=== PATIENT | male | born 1945 | race African-American/Black ===

== ENCOUNTER 2016-11-02 16:11 | Emergency (ER) | payer OTHER ==
--- NOTE | ~2016-11-02 | CT71 ---
[facility] A Service of [facility] RADIOLOGY TEXT RESULTS PATIENT: CHARU DOMINGUEZ LOCATION: [facility] : 43 UNIT #: [id number] AGE: [address]: Polo Solorzano MD SEX: M ORDER DR: [id number] [facility] [address] [place], [place] [address] [id number] E MR#: [id number] #: [id number] NAME: CHARU DOMINGUEZ : 1945 SEX: M STUDY DATE/TIME: 11/02/2016 19:37 UNIT: SEE ROOM: STUDY DESCRIPTION: CT Head Wo Contrast Attending Physician: Jl Solorzano M.D. Ordering Physician: Pa Menchaca M.D. Primary Care Physician: Fausto Sanchez M.D. MEDICAL IMAGING REPORT This report is preliminary unless electronic signature is present EXAM CT head without contrast dated 11/02/2016 COMPARISON None. HISTORY Weakness, hypotension today. TECHNIQUE This CT examination was performed with one or more of the following radiation dose reduction techniques: automatic exposure control, adjustment of mA and/or kV according to patient size, and iterative reconstruction. FINDINGS CT of the head was obtained without contrast. Patchy hypodensities are noted in the brain involving the periventricular and subcortical white matter, bilateral thalami, right basal ganglia and mariajose. No associated edema is seen. There is no acute intracranial hemorrhage, hydrocephalus or midline shift. Nasal septum is deviated to the left. Paranasal sinuses and mastoid air cells are well-aerated. Orbits with the ocular structures do not demonstrate any significant abnormality. IMPRESSION 1. Scattered hypodensities are noted in the brain suggestive of moderate chronic microvascular ischemic change and old lacunar infarcts. 2. No acute intracranial abnormality. Dictated by... Simone Lipscomb M.D. [facility] A Service of [facility] RADIOLOGY TEXT RESULTS PATIENT: CHARU DOMINGUEZ LOCATION: [facility] : 43 UNIT #: [id number] AGE: [address]: Polo Solorzano MD SEX: M ORDER DR: THIS IS AN ELECTRONICALLY VERIFIED REPORT Simone Lipscomb M.D. at 11/05/2016 3:10 PM CPR/katie TD: 11/04/2016 08:31 JOB #: [id number] MEDICAL IMAGING REPORT Page 1 of 1 COPY
--- NOTE | ~2016-11-02 | EKG ---
PATIENT: CHARU DOMINGUEZ UNIT #: [id number] Ventricular Rate: 68 BPM Atrial Rate: 68 BPM P-R Interval: 226 ms QRS Duration: 86 ms Q-T Interval: 446 ms QTC Calculation(Bezet): 474 ms P [place]: 43 degrees Calculated R [place]: 8 degrees Calculated T [place]: 113 degrees Diagnosis Line: Sinus rhythm with 1st degree A-V block with Diagnosis Line: Premature atrial complexes Diagnosis Line: Left ventricular hypertrophy with repolarization Diagnosis Line: abnormality Diagnosis Line: Abnormal ECG Diagnosis Line: When compared with ECG of 18-APR-2013 12:22, Diagnosis Line: Premature atrial complexes are now Present Diagnosis Line: Vent. rate has increased BY 29 BPM Diagnosis Line: Nonspecific T wave abnormality has replaced Diagnosis Line: inverted T waves in Inferior leads Diagnosis Line: QT has lengthened Diagnosis Line: Confirmed by NICOL SMITH MD ([id number]) on Diagnosis Line: 11/03/2016 4:35:29 PM INTERPRETING MD: SARAH TAVARES
--- NOTE | ~2016-11-02 | CR72 ---
[facility] A Service of [facility] & [facility] RADIOLOGY TEXT RESULTS PATIENT: CHARU DOMINGUEZ LOCATION: [facility] : 43 UNIT #: [id number] AGE: [address]: Polo Solorzano MD SEX: M ORDER DR: [id number] [facility] [address] [place], [place] [address] [id number] E MR#: [id number] Acc #: [id number] NAME: CHARU DOMINGUEZ : 1945 SEX: M STUDY DATE/TIME: 11/02/2016 15:49 UNIT: [facility] ROOM: STUDY DESCRIPTION: CR Chest Single View Portable Attending Physician: Yvonne Solorzano M.D. Ordering Physician: [facility] Primary Care Physician: Fausto Sanchez M.D. MEDICAL IMAGING REPORT This report is preliminary unless electronic signature is present EXAM Portable chest x-ray 11/02/2016 HISTORY Short of air. AP radiograph of the chest is presented. COMPARISON STUDIES 04/18/2013 at 1226 hours FINDINGS Mild cardiac enlargement. More pronounced than on prior study. Mildly tortuous descending thoracic aorta. Degenerative change in the spine. No acute bony abnormality. The lungs are well inflated. Borderline prominence central pulmonary vessels. This could be a reflection of borderline vascular congestion. There is no buster pulmonary edema. No pleural effusion or pneumothorax. No suspicious nodule. There is no indication of pneumonia. Dictated by... Eriberto Roberts M.D. THIS IS AN ELECTRONICALLY VERIFIED REPORT Eriberto Roberts M.D. at 11/03/2016 10:29 AM Navin TD: 11/02/2016 18:15 JOB #: [id number] MEDICAL IMAGING REPORT Page 1 of 1 COPY
[2016-11-02 15:44] LABS: BASOPHIL% 0.4 % (0-2.5); EOSINOPHIL% 0.2 % (0.0-7.0); HEMATOCRIT 39.4 % (38.0-50.0); HEMOGLOBIN 12.7 gm/dL (13.0-16.0); LYMPHOCYTE# 0.5 X10e3 (1.0-3.5); LYMPHOCYTE% 5.1 % (17.0-45.0); MEAN CELL VOLUME 85.4 FL (83-96); MEAN CORPUSCULAR HEMOGLOBIN 27.5 PG (28-34); MEAN CORPUSCULAR HGB CONC 32.2 g/dL (30-36); MEAN PLATELET VOLUME 11.1 FL (6.5-11.5); MONOCYTE# 0.4 X10e3 (0-1.0); NEUTROPHIL# 9.5 X10e3 (1.5-7.1); NEUTROPHIL% 90.3 % (40-75); PLATELET COUNT 125 X10e3 (140-420); RED BLOOD COUNT 4.61 X10e (3.90-5.60); RED CELL DISTRIBUTION WIDTH 14.4 % (11.0-15.5); WHITE BLOOD COUNT 10.5 X10e3 (4.0-10.5)
[2016-11-02 15:46] LABS: POC - CKMB 1.8 ng/mL (0.0-7.9); POC - TROPONIN <0.05 ng/mL (<=0.05)
[2016-11-02 15:49] LABS: DIFF IND NO
[2016-11-02 15:58] LABS: INR 1.1; PROTHROMBIN TIME (PATIENT) 11.7 SECONDS (9.6-11.5)
[~2016-11-02 16:11] MED LIST: ATENOLOL-CHLORT1 TA3 PO; DISCONTINUED MED; FLOMAX0.4 M1 PO; KCL PO; KLOR-CON PO; PERCOCET5/325; RAMIPRIL10 MG PO
[2016-11-02 16:13] LABS: ALBUMIN SERUM 4.1 g/dL (3.5-5.0); BILIRUBIN, DIRECT 0.2 mg/dL (0.0-0.2); BILIRUBIN,INDIRECT 0.7 mg/dL (0.0-0.9); BILIRUBIN,TOTAL 0.9 mg/dL (0.2-2.0); BUN/CREATININE RATIO 17.5; CALCIUM SERUM 9.5 mg/dL (8.4-10.2); CREATININE SERUM 1.2 mg/dL (0.6-1.4); GLOM FILT RATE Estimated 69.6 mL/min (>60); POTASSIUM 3.3 mmol/L (3.5-5.1); PROTEIN TOTAL SERUM 7.3 g/dL (6.0-8.3)
[2016-11-02 17:20] LABS: POC - TROPONIN <0.05 ng/mL (<=0.05)
== END 2016-11-02 20:30 | disposition left against medical advice (07) ==
LOC: CED 16:11
PROVIDERS: Emergency Medicine
DX: R55 Syncope and collapse (principal); I10 Essential (primary) hypertension
CPT/HCPCS: 36415; 70450; 71010; 80048; 80076; 82553; 84484; 85025; 85610; 93005; 96361; 96374; 99284; J2405